=== PATIENT | male | born 1940 | race Caucasian/White ===

== ENCOUNTER 2017-09-25 06:30 | Day surgery (SDC) | payer MEDICARE, OTHER ==
[2017-09-25] MEDS ORDERED: Lidocaine 1% with EPINEPHrine 1:100,000 50 ML MDV ONE (06:39)
[2017-09-25] MEDS ORDERED: Acetaminophen 500 MG Tab PO ONE (06:45)
[2017-09-25] MEDS ORDERED: Dextrose 5%-Lactated Ringers 1,000 ML IV SCH (06:50)
[2017-09-25] MEDS ORDERED: ceFAZolin 1 GM in Premix Bag 1 BAG IV ONE (07:15)
[2017-09-25] MEDS ORDERED: Propofol 200 MG/20 ML SDV ONE (07:15)
[2017-09-25] MEDS ORDERED: Midazolam 1 MG/ML 2 ML SDV ONE (07:15)
[2017-09-25] MEDS ORDERED: fentaNYL 100 MCG/2 ML SDV ONE (07:15)
[2017-09-25] MEDS ORDERED: Lidocaine 0.5% 50 ML SDV ONE (07:17)
[2017-09-25] MEDS ORDERED: Acetaminophen/HYDROcodone 325-5 MG Tab PO PRN (09:08)
--- NOTE | 2017-09-28 10:23 | OR ---
DATE OF PROCEDURE: 09/25/2017 PREOPERATIVE DIAGNOSIS: Left carpal tunnel syndrome. POSTOPERATIVE DIAGNOSES: 1. Left carpal tunnel syndrome. 2. Lipoma located within left carpal tunnel. OPERATIVE PROCEDURES: 1. Left carpal tunnel release (22221). 2. Excision of lipoma located within the left carpal tunnel (49438). ANESTHESIA: IV block plus sedation. DIRECTOR OF PHYSICAL THERAPY: WILSON Narayanan. INDICATION FOR PROCEDURE: This 76-year-old is presenting with what appears to be bilateral carpal tunnel syndrome. He also has a fairly severe polyneuropathy, but EMG does confirm bilateral carpal tunnel syndrome. Clinically, the patient does have symptoms above and beyond what you would expect from the polyneuropathy in terms of carpal tunnel symptoms. Given this, the plan is to proceed with a carpal tunnel release, left-sided more symptomatic than right. We will start with the left side. Potential risks of the procedure including bleeding, infection, injury to the median nerve and/or its branches, some degree of incomplete relief of symptoms frequently given the patient's polyneuropathy were all gone over, and the patient wishes to proceed. DETAILS OF PROCEDURE: The patient was taken to the operating room and placed in a supine position. IV block was placed affecting the left forearm and hand, and those areas were prepped and draped. A standard left carpal tunnel incision was made and carried down through the skin and subcutaneous tissue. The transverse carpal ligament was then divided maintaining an ulnar orientation with regard to the underlying median nerve. The patient was noted to have a 1 to 1.5 cm lipoma located within the carpal tunnel as well, which likely may be contributing to the pressure symptoms on the nerve. This was excised and sent as a separate specimen. Following this then, there appeared to be complete relief of pressure on the median nerve. The incision was closed with 4-0 Vicryl subdermal stitch and 5-0 Prolene skin stitch. Dressing was applied. The patient was taken to the recovery room in a satisfactory condition. Hardeep Jerez MD /[id number]
== END 2017-09-25 09:44 | disposition home or self-care (01) ==
LOC: JP.SDS 06:30
PROVIDERS: ATTEND Surgery
DX: G56.03 Carpal tunnel syndrome, bilateral upper limbs (principal); D21.12 Benign neoplasm of connective and other soft tissue of left upper limb, including shoulder; I25.10 Atherosclerotic heart disease of native coronary artery without angina pectoris
CPT/HCPCS: 25076; 64721; A9270; J0690; J2250; J2704; J3010; J7042; 88304

== ENCOUNTER 2018-11-19 05:30 | Day surgery (SDC) | payer MEDICARE, OTHER ==
[2018-11-19] MEDS ORDERED: Dextrose 5%-Lactated Ringers 1,000 ML IV SCH (06:00)
[2018-11-19] MEDS ORDERED: ceFAZolin 2 GM in Sodium Chloride 0.9% 50 ML IV ONE (06:00)
[2018-11-19] MEDS ORDERED: Lidocaine 1% with EPINEPHrine 1:100,000 50 ML MDV ONE (06:33)
[2018-11-19] MEDS ORDERED: Bupivacaine 0.5% 50 ML MDV ONE (06:33)
[2018-11-19] MEDS ORDERED: fentaNYL 100 MCG/2 ML SDV ONE (06:56)
[2018-11-19] MEDS ORDERED: Propofol 200 MG/20 ML SDV ONE (06:56)
--- NOTE | 2018-11-22 09:07 | OR ---
DATE OF PROCEDURE: 11/19/2018 PREOPERATIVE DIAGNOSIS: Progressive sensorimotor axonal polyneuropathy. POSTOPERATIVE DIAGNOSIS: Progressive sensorimotor axonal polyneuropathy. OPERATIVE PROCEDURE: Left sural nerve biopsy (92196). ANESTHESIA: Local plus IV sedation. INDICATION FOR PROCEDURE: This is a 78-year-old with progressive sensorimotor polyneuropathy, who was referred for a sural nerve biopsy. Plan is to proceed with a left sural nerve biopsy as this side is affected somewhat more than the right. Potential risks of the procedure including bleeding and infection were reviewed, and the patient wishes to proceed. DETAILS OF PROCEDURE: The patient was taken to the operating room and placed in the prone position. IV sedation was administered after which the left calf and the foot were prepped and draped. The area lateral to the distal Achilles tendon was then anesthetized with 1% lidocaine mixed with Marcaine and a linear incision was made and carried down through the skin and subcutaneous tissue. Sural nerve was identified and after being dissected free was divided proximally and distally producing a 6 cm segment. This was given to the laboratory clerk after orientation of the specimen, where he then prepared the specimen for pathologic evaluation. The incision was then inspected. The divided ends of the nerves were then suture ligated with 4-0 Vicryl stitch and the subcutaneous tissue approximated with 4-0 Vicryl stitch and the skin then closed with marcie. Dressing was applied. The patient was taken to the recovery room in satisfactory condition. Hardeep Jerez MD /[id number]
== END 2018-11-19 09:35 | disposition home or self-care (01) ==
LOC: JP.SDS 05:30
PROVIDERS: ATTEND Surgery
DX: G60.3 Idiopathic progressive neuropathy (principal); I25.10 Atherosclerotic heart disease of native coronary artery without angina pectoris; I73.9 Peripheral vascular disease, unspecified; E78.5 Hyperlipidemia, unspecified; F17.200 Nicotine dependence, unspecified, uncomplicated
CPT/HCPCS: 64795; J0690; J2704; J3010; J3490; J7042; J7050

== ENCOUNTER 2020-02-02 07:34 | Day surgery (SDC) | payer MEDICARE, OTHER ==
[~2020-02-02 07:34] MED LIST: Bupivacaine 0.5% 50 ML MDV ONE; Lidocaine 1% with EPINEPHrine 1:100,000 50 ML MDV ONE
[2020-02-02] MEDS ORDERED: Midazolam 1 MG/ML 2 ML SDV ONE (08:35)
[2020-02-02] MEDS ORDERED: fentaNYL 100 MCG/2 ML SDV ONE (08:35)
[2020-02-02] MEDS ORDERED: Propofol 200 MG/20 ML SDV ONE (08:36)
[2020-02-02] MEDS ORDERED: Dextrose 5%-Lactated Ringers 1,000 ML IV SCH (09:15)
[2020-02-02] MEDS ORDERED: Linezolid 600 MG in Premix Bag 1 BAG IV ONE (09:45)
--- NOTE | 2020-02-06 13:59 | OR ---
DATE OF PROCEDURE: 02/02/2020 SURGEON: Hardeep Jerez MD PREOPERATIVE DIAGNOSIS: Indication for central venous access. POSTOPERATIVE DIAGNOSIS: Indication for central venous access. OPERATIVE PROCEDURE: Placement of Bard port via left subclavian vein approach (24974). ANESTHESIA: IV sedation plus local. 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 He is showing some improvement in the symptoms with that. At this point, he is having problems with maintenance of IV access. The plan is to proceed with port placement for facilitation of the IV treatment. Potential risks including bleeding, infection, injury to the lung or vasculature, and problems with the port becoming infected or occluded were all reviewed, and the patient wishes to proceed. DETAILS OF PROCEDURE: The patient was taken to the operating room and placed in the supine position. IV sedation was administered after which the upper chest and neck areas were prepped and draped. The left subclavian area was then anesthetized with 1% lidocaine. The left subclavian vein was then cannulated. A guidewire from there into the superior vena cava. Some additional local was injected. A transverse infraclavicular incision was made and carried down through the skin and subcutaneous tissue and through the pectoralis major fascia where a subfascial port was then constructed bluntly. The Bard port, which had been assembled flush was then placed into the port and the catheter cut such that the tip would lie in the area of the superior vena cava and right atrial junction. This was placed without difficulty with introducer and peel-away catheters. The incision was then closed with 3 layers of 3-0 and 4-0 Vicryl stitch, and the port was then aspirated and flushed once. Good in and outflow were noted. A dressing was applied. The patient was taken to the recovery room in satisfactory condition. Hardeep Jerez MD /[id number]
== END 2020-02-02 13:34 | disposition home or self-care (01) ==
LOC: JP.SDS 07:34
PROVIDERS: ATTEND Surgery
DX: G61.81 Chronic inflammatory demyelinating polyneuritis (principal); I10 Essential (primary) hypertension; I73.9 Peripheral vascular disease, unspecified; I25.10 Atherosclerotic heart disease of native coronary artery without angina pectoris
CPT/HCPCS: 36561; 77001; 93005; 93010; C1788; J1642; J2020; J2250; J2704; J3010; J3490; J7121

== ENCOUNTER → 2021-04-04 | Day surgery (SDC) | payer MEDICARE, OTHER ==
[~2021-04-04] MED LIST changes: +Midazolam 1 MG/ML 2 ML SDV ONE; +Propofol 200 MG/20 ML SDV ONE; +Sodium Chloride 0.9% 1,000 ML IV SCH; +fentaNYL 100 MCG/2 ML SDV ONE
[2021-04-04] MEDS: Dextrose 5%-Lactated Ringers 1,000 ML IV SCH (08:40)
[2021-04-04 09:58] LABS: CORONAVIRUS COVID-19 NAA NEGATIVE (NEGATIVE)
--- NOTE | 2021-04-05 09:11 | OR ---
DATE OF PROCEDURE: 04/04/2021 SURGEON: Dustin Ley MD PROCEDURE: 1. Removal of left subclavian port. 2. Placement of right subclavian port, tunneled. COMPLICATIONS: None. FABRICATION SPECIALIST: None. ANESTHESIA: MAC. 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 RISKS: Risks, benefits, alternatives, and limitations including, but not limited to infection, bleeding, pneumothorax, chronic wounds, chronic pain, requirement for reoperation, other risks not listed here were explained to the patient and they wished to proceed. PROCEDURE IN DETAIL: The patient was placed in supine position. The left subclavian port was removed. This was unable to be salvaged due to the wire unable to be advanced through the tubing. This was removed, direct pressure was held for 10 minutes. The wound was closed with 3-0 Vicryl and 4-0 Vicryl in interrupted running fashion. The right subclavian vein was next accessed on the first pass. This was accessed using a micropuncture needle kit, then exchanged for a 35,000th wire. This was placed in the superior vena cava, exchanged for the tubing. This was further anesthetized with lidocaine, a pocket was created. This was then sutured into place into multiple locations after the suture locker and tubing was placed and connected to the port itself. A Aguilar needle was used and this device was tested and worked well. The wounds were closed with 3-0 Vicryl and 4-0 Vicryl in interrupted running fashion. Dermabond was applied. The patient tolerated the procedure well. Dustin Ley MD /[id number]
== END ==
LOC: JP.SDS 09:07
PROVIDERS: ATTEND Surgery
DX: D89.89 Other specified disorders involving the immune mechanism, not elsewhere classified (principal); J44.9 Chronic obstructive pulmonary disease, unspecified; I25.10 Atherosclerotic heart disease of native coronary artery without angina pectoris; I10 Essential (primary) hypertension; E11.51 Type 2 diabetes mellitus with diabetic peripheral angiopathy without gangrene; I48.91 Unspecified atrial fibrillation; E11.9 Type 2 diabetes mellitus without complications; Z01.812 Encounter for preprocedural laboratory examination; Z20.822 Contact with and (suspected) exposure to COVID-19
CPT/HCPCS: 0241U; 36561; 36590; 77001; C1788; C1894; J1642; J2250; J2704; J3010; J3490; J7121

== ENCOUNTER 2021-11-10 10:08 | Day surgery (SDC) | payer MEDICARE, OTHER ==
[2021-11-10] MEDS ORDERED: Lactated Ringers 1,000 ML IV SCH (11:15)
[2021-11-10] MEDS ORDERED: Propofol 200 MG/20 ML SDV ONE (11:17)
[2021-11-10] MEDS ORDERED: fentaNYL 100 MCG/2 ML SDV ONE (11:17)
== END 2021-11-10 14:05 | disposition home or self-care (01) ==
LOC: JP.SDS 10:08
PROVIDERS: ATTEND Family Medicine
DX: D12.2 Benign neoplasm of ascending colon (principal); I25.10 Atherosclerotic heart disease of native coronary artery without angina pectoris; I48.91 Unspecified atrial fibrillation; Z79.02 Long term (current) use of antithrombotics/antiplatelets; Z79.01 Long term (current) use of anticoagulants
CPT/HCPCS: 45380; J1642; J2704; J3010; J7120

== ENCOUNTER 2022-10-05 07:02 | Day surgery (SDC) | payer MEDICARE, OTHER ==
[~2022-10-05 07:02] MED LIST changes: -Midazolam 1 MG/ML 2 ML SDV ONE; -Propofol 200 MG/20 ML SDV ONE; -Sodium Chloride 0.9% 1,000 ML IV SCH; -fentaNYL 100 MCG/2 ML SDV ONE
[2022-10-05] MEDS ORDERED: Dextrose 5%-Lactated Ringers 1,000 ML IV SCH (07:30)
[2022-10-05] MEDS ORDERED: ceFAZolin 2 GM in Premix Bag 1 BAG IV ONE (08:15)
[2022-10-05] MEDS ORDERED: Linezolid 600 MG/300 ML Premix Bag IRR ONE (09:15)
== END 2022-10-05 11:43 | disposition home or self-care (01) ==
LOC: JP.SDS 07:02
PROVIDERS: ATTEND Surgery
DX: C77.0 Secondary and unspecified malignant neoplasm of lymph nodes of head, face and neck (principal); C80.1 Malignant (primary) neoplasm, unspecified; I10 Essential (primary) hypertension; I48.91 Unspecified atrial fibrillation; I25.10 Atherosclerotic heart disease of native coronary artery without angina pectoris; I73.9 Peripheral vascular disease, unspecified; R73.03 Prediabetes; G61.81 Chronic inflammatory demyelinating polyneuritis
CPT/HCPCS: 38510; 76942; 87015; 87070; 87075; 87102; 87116; 87205; 87206; 87220; 88305; 88342; J0690; J1642; J2020; J3490; J7121

== ENCOUNTER 2025-01-17 13:28 | Emergency (ER) | payer MEDICARE, OTHER ==
[2025-01-17] MEDS ORDERED: Sodium Chloride 0.9% 10 ML Syringe FLUSH PRN (13:39)
[2025-01-17] MEDS ORDERED: Iopamidol 755 Mg/ML 100 ML Bottle IV STA (13:39)
[2025-01-17 14:01] LABS: PLATELET COUNT,PLT 111 K/uL (130-375); RED BLOOD CELL COUNT 3.60 M/uL (4.14-5.76); WHITE BLOOD CELL COUNT,WBC 3.2 K/uL (3.2-11.0)
[2025-01-17 14:19] LABS: INR 1.1; PTT,PARTIAL THROMBOPLSTIN TIME 28.3 sec (21.8-27.3)
[2025-01-17 14:23] LABS: ATYPICAL LYMPHOCYTES RARE; EOSINOPHILS ABSOLUTE MAN 0.19 K/uL (0.00-0.40); EOSINOPHILS PERCENT MAN 6 % (2-4); LYMPHOCYTES ABSOLUTE MAN 0.64 K/uL (0.8-3.3); LYMPHOCYTES PERCENT MAN 20 % (24-44); MONOCYTES ABSOLUTE MAN 0.45 K/uL (0.20-0.90); MONOCYTES PERCENT MAN 14 % (2-6); NEUTROPHILS ABSOLUTE MAN 1.92 K/uL (1.0-7.6); SEG NEUTROPHILS PERCENT MAN 60 % (36-66)
[2025-01-17 14:25] LABS: A/G RATIO 0.5 (1.2-2.2); ALANINE AMINOTRANSFERASE,ALT 14 U/L (12-78); ASPARTATE AMNIOTRANSFERASE,AST 21 U/L (15-37); BILIRUBIN TOTAL 0.4 mg/dL (0.2-1.0); BLOOD UREA NITROGEN,BUN 10 mg/dL (7-18); CARBON DIOXIDE,CO2 27 mmol/L (21-32); CHLORIDE,CL 103 mmol/L (100-108); CREATININE 1.1 mg/dL (0.8-1.3); EST CRCL DRUG DOSING (CG) 47.56 mL/min; ESTIMATED GFR 67 mL/min (>60); GLUCOSE RANDOM 152 mg/dL (74-106); POTASSIUM,K 3.6 mmol/L (3.6-5.2); PROTEIN TOTAL,TP 8.1 g/dL (6.4-8.2); SODIUM,NA 140 mmol/L (140-148)
[2025-01-17] MEDS: Sodium Chloride 0.9% 10 ML Syringe FLUSH ONE (15:23)
[2025-01-17] MEDS: Iopamidol 755 Mg/ML 100 ML Bottle IV ONE (15:23)
== END 2025-01-17 16:37 | disposition home or self-care (01) ==
LOC: JP.ED 13:28
DX: R29.898 Other symptoms and signs involving the musculoskeletal system (principal); E78.00 Pure hypercholesterolemia, unspecified; I10 Essential (primary) hypertension; K21.9 Gastro-esophageal reflux disease without esophagitis; Z79.899 Other long term (current) drug therapy; Z88.8 Allergy status to other drugs, medicaments and biological substances; Z79.02 Long term (current) use of antithrombotics/antiplatelets
CPT/HCPCS: 36415; 70450; 70496; 70498; 80053; 82947; 84484; 85025; 85610; 85730; 93005; 99285; Q9967

== ENCOUNTER 2025-01-17 21:52 | Inpatient (IN) | payer MEDICARE, OTHER ==
[2025-01-17 22:15] LABS: PLATELET COUNT,PLT 114 K/uL (130-375); RED BLOOD CELL COUNT 3.84 M/uL (4.14-5.76); WHITE BLOOD CELL COUNT,WBC 2.7 K/uL (3.2-11.0)
[2025-01-17 22:31] LABS: BASOPHILS ABSOLUTE MAN 0.05 K/uL (0.00-0.10); BASOPHILS PERCENT MAN 2 % (0-1); EOSINOPHILS ABSOLUTE MAN 0.11 K/uL (0.00-0.40); EOSINOPHILS PERCENT MAN 4 % (2-4); LYMPHOCYTES ABSOLUTE MAN 0.51 K/uL (0.8-3.3); LYMPHOCYTES PERCENT MAN 19 % (24-44); MONOCYTES ABSOLUTE MAN 0.41 K/uL (0.20-0.90); MONOCYTES PERCENT MAN 15 % (2-6); NEUTROPHILS ABSOLUTE MAN 1.62 K/uL (1.0-7.6); SEG NEUTROPHILS PERCENT MAN 60 % (36-66)
[2025-01-17 22:32] LABS: ATYPICAL LYMPHOCYTES RARE
[2025-01-17 22:36] LABS: A/G RATIO 0.6 (1.2-2.2); ALANINE AMINOTRANSFERASE,ALT 14 U/L (12-78); ASPARTATE AMNIOTRANSFERASE,AST 19 U/L (15-37); BILIRUBIN TOTAL 0.4 mg/dL (0.2-1.0); BLOOD UREA NITROGEN,BUN 10 mg/dL (7-18); CARBON DIOXIDE,CO2 29 mmol/L (21-32); CHLORIDE,CL 105 mmol/L (100-108); CREATININE 1.0 mg/dL (0.8-1.3); ESTIMATED GFR 75 mL/min (>60); GLUCOSE RANDOM 80 mg/dL (74-106); POTASSIUM,K 3.9 mmol/L (3.6-5.2); PROTEIN TOTAL,TP 8.2 g/dL (6.4-8.2); SODIUM,NA 141 mmol/L (140-148)
[2025-01-18] MEDS ORDERED: Sennosides/Docusate Sodium 50-8.6 MG Tab PO PRN (00:28)
[2025-01-18] MEDS ORDERED: Ondansetron 4 MG Tab.DIS PO PRN (00:28)
[2025-01-18] MEDS ORDERED: Ondansetron 4 MG/2 ML SDV IV PRN (00:28)
[2025-01-18 05:31] LABS: PLATELET COUNT,PLT 103.0 K/uL (130-375); RED BLOOD CELL COUNT 3.82 M/uL (4.14-5.76); WHITE BLOOD CELL COUNT,WBC 5.7 K/uL (3.2-11.0)
[2025-01-18 05:46] LABS: BLOOD UREA NITROGEN,BUN 8.0 mg/dL (7-18); CARBON DIOXIDE,CO2 28.0 mmol/L (21-32); CHLORIDE,CL 107.0 mmol/L (100-108); CREATININE 0.9 mg/dL (0.8-1.3); EST CRCL DRUG DOSING (CG) 57.1 mL/min; ESTIMATED GFR 85.0 mL/min (>60); GLUCOSE RANDOM 88.0 mg/dL (74-106); POTASSIUM,K 4.4 mmol/L (3.6-5.2); SODIUM,NA 143.0 mmol/L (140-148)
[2025-01-18] MEDS: Pentoxifylline 400 MG Tab.ER PO SCH (09:46)
[2025-01-18] MEDS: Cyanocobalamin (Vitamin B12) 1,000 MCG Tab PO SCH (09:46)
[2025-01-18] MEDS: Propranolol 80 MG Cap.ER PO SCH (09:46)
[2025-01-19] MEDS: Gadoteridol 279.3 MG/ML 15 ML SDV IV SCH (12:27)
[2025-01-19] MEDS: Cyanocobalamin (Vitamin B12) 1,000 MCG Tab PO SCH (12:50)
[2025-01-22 06:50] LABS: ANAPLASMA PHAGOCYTOPHILUM PCR Not Detected; BABESIA MICROTI BY PCR Not Detected; EHRLICHIA CHAFFEENSIS BY PCR Not Detected; EHRLICHIA EWINGII/CANIS BY PCR Not Detected; EHRLICHIA MURIS-LIKE BY PCR Not Detected
== END 2025-01-21 13:07 | DRG 65 ==
LOC: JP.ED 21:52 → JP.MS 01-18 00:02 → OBSVTOIN 01-18 09:23
PROVIDERS: ADMIT Registered Nurse; ATTEND Student in an Organized Health Care Education/Training Program
DX: I63.9 Cerebral infarction, unspecified (principal); G81.94 Hemiplegia, unspecified affecting left nondominant side; Z66 Do not resuscitate; H54.7 Unspecified visual loss; J32.9 Chronic sinusitis, unspecified; E78.00 Pure hypercholesterolemia, unspecified; I10 Essential (primary) hypertension; K21.9 Gastro-esophageal reflux disease without esophagitis; N40.0 Benign prostatic hyperplasia without lower urinary tract symptoms; N42.9 Disorder of prostate, unspecified; M54.9 Dorsalgia, unspecified; G89.29 Other chronic pain; G62.9 Polyneuropathy, unspecified; R73.03 Prediabetes; D64.9 Anemia, unspecified; I73.9 Peripheral vascular disease, unspecified; I48.91 Unspecified atrial fibrillation; F17.200 Nicotine dependence, unspecified, uncomplicated; Z79.899 Other long term (current) drug therapy; Z79.82 Long term (current) use of aspirin; Z79.01 Long term (current) use of anticoagulants; Z90.49 Acquired absence of other specified parts of digestive tract; Z98.890 Other specified postprocedural states; Z85.828 Personal history of other malignant neoplasm of skin; Z88.8 Allergy status to other drugs, medicaments and biological substances
CPT/HCPCS: 36415; 70450; 70553; 70553-26; 80048; 80053; 85025; 85027; 86618; 87468; 87469; 87484; 87798; 93306; 96105-GN; 96125-GN; 97110-GO; 97110-GP; 97161-GP; 97166-GO; 97535-GO; 99223; 99232; 99238; 99285; A9270-GY; A9579; G0378

== ENCOUNTER 2025-02-14 14:28 | Emergency (ER) | payer MEDICARE, OTHER ==
[2025-02-14] MEDS: fentaNYL 50 MCG/ML SDV IM ONE (16:56)
[2025-02-14] MEDS: fentaNYL 100 MCG/2 ML SDV IM ONE (17:01)
== END 2025-02-14 18:42 | disposition home or self-care (01) ==
LOC: JP.ED 14:28
DX: S70.02XA Contusion of left hip, initial encounter (principal); I10 Essential (primary) hypertension; E78.00 Pure hypercholesterolemia, unspecified; K21.9 Gastro-esophageal reflux disease without esophagitis; Z88.1 Allergy status to other antibiotic agents; Z79.899 Other long term (current) drug therapy; W01.0XXA Fall on same level from slipping, tripping and stumbling without subsequent striking against object, initial encounter
CPT/HCPCS: 72192; 73501; 76377; 96372; 99284; J3010

== ENCOUNTER 2025-02-16 06:58 | Emergency (ER) | payer MEDICARE, OTHER | END 2025-02-16 13:58 | disposition swing bed (61) | LOC: JP.ED 06:58 | DX: S70.02XD Contusion of left hip, subsequent encounter (principal); G61.81 Chronic inflammatory demyelinating polyneuritis; R53.1 Weakness; I10 Essential (primary) hypertension; E78.00 Pure hypercholesterolemia, unspecified; F17.200 Nicotine dependence, unspecified, uncomplicated; Z88.8 Allergy status to other drugs, medicaments and biological substances; Z79.82 Long term (current) use of aspirin; Z79.899 Other long term (current) drug therapy; W19.XXXD Unspecified fall, subsequent encounter | CPT/HCPCS: 73700-26-LT; 73700-LT; 76377; 76377-26; 99283 ==